=== PATIENT | female | born 1980 | race Two or more races ===

== ENCOUNTER 2019-06-05 19:58 | Emergency (ER) | payer OTHER ==
--- NOTE | 2019-06-05 20:03 | PDOC ---
Rapid Medical Evaluation Time Seen by Provider: 06/05/19 20:02 Medical Evaluation: Allergies Allergy/AdvReac Type Severity Reaction Status Date / Time No Known Allergies Allergy Verified 05/04/16 14:32 06/05/19 20:02 I have performed a brief in-person evaluation of this patient. The patient presents with a chief complaint of: dizziness and feeling off- balanced today, no CP or SOB. Pt denies pmhx but based on records here, pt was dx w/ TIA in 2016 and found to have ?atrial septal defect on ECHO and referred to cards for out-pt ROSALIND. Was placed on baby asa then which pt is no longer on. Pertinent physical exam findings:Stable and well fidencio w/ no focal deficits I have ordered the following:ekg/labs The patient will proceed to the ED for further evaluation. 06/05/19 20:07 Discharge Disposition - Diagnosis Dizziness - Referrals - Patient Instructions - Post Discharge Activity
[2019-06-05 20:04] VITALS: BP 110/67; PULSE 71; TEMP 97.9; BMI 20.9
--- NOTE | 2019-06-05 20:44 | PDOC ---
Attending Attestation - Resident Resident Name: Shwetha Smith - ED Attending Attestation I have performed the following: I have examined & evaluated the patient, The case was reviewed & discussed with the resident, I agree w/resident's findings & plan - HPI HPI: 06/05/19 21:53 see resident hpi - Physicial Exam PE: 06/05/19 21:53 agree with resident exam - Medical Decision Making 06/05/19 21:53 38-year-old female with complaints of lightheadedness, patient's history has changed well in the emergency department fluctuating between room spinning and more consistent symptoms with near syncope Patient has had extensive work-ups in the past which she did not offer stating she did not want to have to stay in the hospital for admission After further discussion she was advised to stay for observation and further evaluation due to abnormal echocardiogram in the past that seems to not have been followed up properly She is refusing in the presence of her , she is awake alert oriented x4 and has voiced understanding of the importance of following up with both her primary care and her security project manager, patient and state they will call [facility] for cardiology recommendations
[2019-06-05 21:01] LABS: BASO % 0.6 % (0-2.0); HEMATOCRIT 43.9 % (32.4-45.2); HEMOGLOBIN 15.2 GM/dL (10.7-15.3); LYMPH % 26.1 % (8-40); MCH 29.5 pg (25.7-33.7); MCHC 34.6 g/dl (32.0-36.0); MEAN CELL VOLUME 85.4 fl (80-96); MONO % 6.6 % (3.8-10.2); NEUT % 65.7 % (42.8-82.8); PLATELET COUNT 213 K/MM3 (134-434); RBC 5.14 M/mm3 (3.60-5.2); WHITE BLOOD COUNT 7.5 K/mm3 (4.0-10.0)
[2019-06-05] MEDS ORDERED: MECLIZINE HCL 25 MG TABLET (FP) PO ONE (21:03)
--- NOTE | 2019-06-05 21:03 | PDOC ---
History of Present Illness - General Chief Complaint: Lightheaded Stated Complaint: DIZZINESS/SOB Time Seen by Provider: 06/05/19 20:02 History Source: Patient Exam Limitations: No Limitations - History of Present Illness Initial Comments: 38 year old female with no PMH presented to ED for room spinning episode occurring today at 1900 and 2 months ago. Pt reported she was sitting down and all of a sudden she had a room spinning episode in which she felt very nauseous and had a large coughing episode and felt short of breath. She reported the symptoms are intermittent, but still dizziness is coming and going, prompting her to come to ED. She reported she had a similar episode x2 months ago while riding in the car, she called her PMD, and he stated since her recent physical was normal she did not need to come in. She reported no episodes between then and now. She admitted to generalized weakness and a mild frontal headache. She denied weakness, LOC, vomiting, chest pain, hemoptysis, tinnitus, recent illness , dysuria. Pt then reported that she did not have room spinning, that she was feeling generally weak and nauseous. When asked if she felt she was going to pass out she was adiment she did not feel that, stating "Minda been walking to the bathroom and back just fine." She reported she did not want to come to the ED, but her insisted. PSH: x3 Medications: denied Family history: Mother - DM; denied ID in mother/father/siblings ROS General: denied fever, chills, generalized weakness. HEENT: denied sore throat, rhinorrhea, ear pain. Cardiovascular: denied chest pain, palpitations, syncope, diaphoresis. Respiratory: denied shortness of breath, cough, sputum production, hemoptysis. Gastrointestinal: denied abdominal pain, nausea, vomiting, diarrhea, constipation, blood in stool. Genitourinary: denied dysuria, increased urinary frequency, hematuria, urinary incontinence, flank pain. Back: denied back pain. Musculoskeletal: denied joint pain, muscle pain, joint swelling. Neurological: admitted to headache, dizziness. denied numbness, tingling, weakness. Integumentary: denied rash, laceration, abrasion. Hematologic/Lymphatic: denied bruising or bleeding. PE Constitutional: Well-nourished, Well-developed, appearing stated age. HEENT: head is normocephalic, atraumatic. EOMI. PERRLA. no scalp hematoma. Neck: supple. Full ROM. no midline c-spine tenderness to palpation. Cardiovascular: regular heart rhythm. no murmurs. no pericardial friction rub. Respiratory: clear to auscultation bilaterally. no crackles, rhonchi or wheezing. no stridor. Gastrointestinal: soft, nontender. normal bowel sounds. no rebound, guarding, masses. Extremities: peripheral pulses intact. no lower extremity edema. Neurological: alert. oriented x3. CN2-12 intact. 5/5 strength all extremities. normal ankle plantar flexion. full sensation all extremities and bilateral face. romberg negative. no ataxia. gait normal. Diz-Hallpike did not reproduce symptoms. Psych: awake, alert, oriented x3. follows commands. answers questions appropriately. Past History - Past Medical History Allergies/Adverse Reactions: Allergies Allergy/AdvReac Type Severity Reaction Status Date / Time No Known Allergies Allergy Verified 06/05/19 20:04 Home Medications: Ambulatory Orders Aspirin Coated [Ecotrin -] 81 mg PO DAILY tablet.ec 05/06/16 Asthma: No - Psycho Social/Smoking Cessation Hx Smoking History: Never smoked Have you smoked in the past 12 months: No Information on smoking cessation initiated: No Hx Alcohol Use: No Drug/Substance Use Hx: No Substance Use Type: None Hx Substance Use Treatment: No *Physical Exam - Vital Signs Last Vital Signs Temp Pulse Resp BP Pulse Ox 97.9 F 71 17 110/67 100 06/05/19 20:02 06/05/19 20:02 06/05/19 20:02 06/05/19 20:02 06/05/19 20:02 ED Treatment Course - LABORATORY CBC & Chemistry Diagram: 06/05/19 20:50 06/05/19 20:50 - RADIOLOGY Radiology Studies Ordered: Category Date Time Status HEAD CT WITHOUT CONTRAST [CT] Stat CT Scan 06/05/19 20:57 Ordered CHEST PA & LAT [RAD] Stat Radiology 06/05/19 20:58 Ordered Medical Decision Making - Medical Decision Making 38 year old female with above PMH presented to ED for dizziness room spinning episode intermittently occurring today. Pt reported to me that she had no PMH, had never had a CT of her head. Upon chart review pt was admitted x3 years ago for left sided weakness, had CT head, MRI head, CT angiogram of head and neck which was normal. Her ECHO at the time was concerning for PFO, she was recommended to F/U outpatient for bubbles study. When confronted she reported "I did not want you to find out, I was here for three days last time and I do not want that again." She reported she did follow up and had the bubbles study performed and "many other tests" which were negative. She reported she did not follow up after that as everything was normal. Initial Vital Signs Temp Pulse Resp BP Pulse Ox 97.9 F 71 17 110/67 100 06/05/19 20:02 06/05/19 20:02 06/05/19 20:02 06/05/19 20:02 06/05/19 20:02 Afebrile. No tachycardia. No tachypnea. Normal BP. No hypoxia on room air. Labs ordered: CBC, CMP, UA, , troponin Imaging ordered: CT head, CXR Medications ordered: none EKG performed at 2008: rate 63, regular rhythm, normal axis, normal intervals, nonspecific ST changes. 06/05/19 21:42 Laboratory Last Values WBC 7.5 K/mm3 (4.0-10.0) 06/05/19 20:50 RBC 5.14 M/mm3 (3.60-5.2) 06/05/19 20:50 Hgb 15.2 GM/dL (10.7-15.3) 06/05/19 20:50 Hct 43.9 % (32.4-45.2) D 06/05/19 20:50 MCV 85.4 fl (80-96) 06/05/19 20:50 MCH 29.5 pg (25.7-33.7) 06/05/19 20:50 MCHC 34.6 g/dl (32.0-36.0) 06/05/19 20:50 RDW 13.0 % (11.6-15.6) 06/05/19 20:50 Plt Count 213 K/MM3 (134-434) D 06/05/19 20:50 MPV 9.0 fl (7.5-11.1) 06/05/19 20:50 Absolute Neuts (auto) 4.9 K/mm3 (1.5-8.0) 06/05/19 20:50 Neutrophils % 65.7 % (42.8-82.8) D 06/05/19 20:50 Lymphocytes % 26.1 % (8-40) D 06/05/19 20:50 Monocytes % 6.6 % (3.8-10.2) 06/05/19 20:50 Eosinophils % 1.0 % (0-4.5) 06/05/19 20:50 Basophils % 0.6 % (0-2.0) 06/05/19 20:50 Nucleated RBC % 0 % (0-0) 06/05/19 20:50 Sodium 140 mmol/L (136-145) 06/05/19 20:50 Potassium 3.9 mmol/L (3.5-5.1) 06/05/19 20:50 Chloride 106 mmol/L (98-107) 06/05/19 20:50 Carbon Dioxide 28 mmol/L (21-32) 06/05/19 20:50 Anion Gap 6 MMOL/L (8-16) L 06/05/19 20:50 BUN 19.6 mg/dL (7-18) H 06/05/19 20:50 Creatinine 0.8 mg/dL (0.55-1.3) 06/05/19 20:50 Est GFR (CKD-EPI)AfAm 109.93 06/05/19 20:50 Est GFR (CKD-EPI)NonAf 94.85 06/05/19 20:50 Random Glucose 86 mg/dL (74-106) 06/05/19 20:50 Calcium 9.5 mg/dL (8.5-10.1) 06/05/19 20:50 Total Bilirubin 0.6 mg/dL (0.2-1) 06/05/19 20:50 AST 16 U/L (15-37) 06/05/19 20:50 ALT 34 U/L (13-61) 06/05/19 20:50 Alkaline Phosphatase 74 U/L (45-117) 06/05/19 20:50 Troponin I < 0.02 ng/ml (0.00-0.05) 06/05/19 20:50 Total Protein 7.7 g/dl (6.4-8.2) 06/05/19 20:50 Albumin 4.5 g/dl (3.4-5.0) 06/05/19 20:50 Urine Color Yellow 06/05/19 20:50 Urine Appearance Clear 06/05/19 20:50 Urine pH 7.5 (5.0-8.0) 06/05/19 20:50 Ur Specific [place] 1.007 (1.010-1.035) L 06/05/19 20:50 Urine Protein Negative (NEGATIVE) 06/05/19 20:50 Urine Glucose (UA) Negative (NEGATIVE) 06/05/19 20:50 Urine Ketones Negative (NEGATIVE) 06/05/19 20:50 Urine Blood Negative (NEGATIVE) 06/05/19 20:50 Urine Nitrite Negative (NEGATIVE) 06/05/19 20:50 Urine Bilirubin Negative (NEGATIVE) 06/05/19 20:50 Urine Urobilinogen 0.2 mg/dL (0.2-1.0) 06/05/19 20:50 Ur Leukocyte Esterase Negative (NEGATIVE) 06/05/19 20:50 Urine HCG, Qual Negative 06/05/19 20:50 06/05/19 21:52 CXR my view: sharp costophrenic angles. no infiltrate noted. no cardiomegaly noted. no pulmonary vascular congestion. -Pending official report Results explained to patient and . It was recommended that she have repeat troponin testing, constant cardiac monitoring and cardiology consult in the AM. She and the reported they are unwilling to be admitted to the hospital. Risks explained to patient and . She and he signed out AMA. I advised she F/U with her PCP in the AM and find a drug department worker. She reported she will call [facility] to see which her insurance covers. She was alert and oriented x3, able to make her own medical decisions. 06/07/19 06:34 Follow up: Official CXR report: Name: [facility] DEPARTMENT OF RADIOLOGY Phys: Shwetha Smith RESIDENT : [id number] Age: 38 Sex: F [facility] Acct: [id number] Loc: [address] Exam Date: 06/05/19 Status: RACHEL [place] [id number] Unit Number: [id number] EXAM#: TYPE/EXAM: RESULT: [id number] RAD/CHEST PA LAT Two-view study of the chest PA and lateral projections History: Rule out pneumonia PA and lateral views of the chest are completed with good inspiratory effort identified. Symmetric normal aeration in both lungs with no infiltrate, mass or effusion. No mediastinal adenopathy. Review of the bones demonstrates no focal bony lesions. No compression fracture of the imaged thoracic vertebra. No cardiomegaly. No cervical ribs. Visualized portions of upper abdomen intact, no free air or pneumothorax observed. Impression: Normal two-view survey of the chest. Reported By: Sheldon Morales MD 06/06/19 0751 Discharge - Discharge Information Problems reviewed: Yes Clinical Impression/Diagnosis: Dizziness, Weakness Condition: Guarded Disposition: AGAINST MEDICAL ADVICE - Follow up/Referral Referrals: Jaye Allen MD [Primary Care Provider] - - Patient Discharge Instructions - Post Discharge Activity
[2019-06-05 21:24] LABS: PH,URINE 7.5 (5.0-8.0); URINE APPEARANCE CLEAR; URINE BILIRUBIN NEGATIVE (NEGATIVE); URINE COLOR YELLOW; URINE GLUCOSE (UA) NEGATIVE (NEGATIVE); URINE KETONE NEGATIVE (NEGATIVE); URINE LEUK ESTERASE NEGATIVE (NEGATIVE); URINE NITRITE NEGATIVE (NEGATIVE); URINE PROTEIN NEGATIVE (NEGATIVE); URINE UROBILINOGEN 0.2 mg/dL (0.2-1.0)
[2019-06-05 21:42] LABS: ALBUMIN 4.5 g/dl (3.4-5.0); ALK PHOS 74 U/L (45-117); ANION GAP 6 MMOL/L (8-16); BILIRUBIN,TOTAL 0.6 mg/dL (0.2-1); BLOOD UREA NITROGEN 19.6 mg/dL (7-18); CALCIUM 9.5 mg/dL (8.5-10.1); CHLORIDE 106 mmol/L (98-107); CO2 28 mmol/L (21-32); CREATININE 0.8 mg/dL (0.55-1.3); GLUCOSE,RANDOM 86 mg/dL (74-106); POTASSIUM 3.9 mmol/L (3.5-5.1); SGOT/AST 16 U/L (15-37); SGPT/ALT 34 U/L (13-61); SODIUM 140 mmol/L (136-145); TOT PROT 7.7 g/dl (6.4-8.2)
[2019-06-05] MEDS ORDERED: MECLIZINE HCL 25 MG TABLET (FP) ONE (21:46)
--- NOTE | 2019-06-06 14:42 | EKG ---
Test Reason : Blood Pressure : / mmHG Vent. Rate : 063 BPM Atrial Rate : 063 BPM P-R Int : 164 ms QRS Dur : 086 ms QT Int : 416 ms P-R-T Axes : 070 059 060 degrees QTc Int : 425 ms NORMAL SINUS RHYTHM POSSIBLE LEFT ATRIAL ENLARGEMENT BORDERLINE ECG WHEN COMPARED WITH ECG OF 04-MAY-2016 14:53, NO SIGNIFICANT CHANGE WAS FOUND Confirmed by CHONG VERA MD ([id number]) on 06/06/2019 2:42:11 PM Referred By: Confirmed By:CHONG VERA MD
== END 2019-06-05 21:58 | disposition left against medical advice (07) ==
LOC: JER 19:58
DX: R42 Dizziness and giddiness (principal); R53.1 Weakness
CPT/HCPCS: 36415; 71046-TC-FY; 80053; 81003; 84484; 84703; 85025; 93005; 93010; 99283-25

== ENCOUNTER 2024-02-23 15:01 | Emergency (ER) | payer OTHER ==
[2024-02-23 15:12] VITALS: BP 108/65; PULSE 85; RESP 18; TEMP 97.7; BMI 22.6
[2024-02-23 16:18] LABS: BASO % 0.7 % (0-2.0); EOS % 0.9 % (0-4.5); HEMATOCRIT 42.6 % (32.4-45.2); HEMOGLOBIN 14.5 GM/dL (10.7-15.3); LYMPH % 24.3 % (8-40); MCH 28.8 pg (25.7-33.7); MCHC 34.1 g/dl (32.0-36.0); MEAN CELL VOLUME 84.2 fl (80-96); MEAN PLT VOLUME 8.5 fl (7.5-11.1); NEUT % 68.1 % (42.8-82.8); PLATELET COUNT 218 10^3/uL (134-434); RBC 5.05 M/mm3 (3.60-5.2); RDW 13.1 % (11.6-15.6); WHITE BLOOD COUNT 7.8 K/mm3 (4.0-10.0)
[2024-02-23 16:24] LABS: PH,URINE 6.5 (5.0-8.0); URINE APPEARANCE CLEAR; URINE BILIRUBIN NEGATIVE (NEGATIVE); URINE COLOR YELLOW; URINE GLUCOSE (UA) NEGATIVE (NEGATIVE); URINE KETONE NEGATIVE (NEGATIVE); URINE LEUK ESTERASE NEGATIVE (NEGATIVE); URINE NITRITE NEGATIVE (NEGATIVE); URINE PROTEIN NEGATIVE (NEGATIVE)
[2024-02-23 16:27] LABS: HCG,QUALITATIVE URINE Negative
[2024-02-23 16:42] LABS: POTASSIUM 3.9 mmol/L (3.5-5.1)
[2024-02-23 16:44] LABS: ALBUMIN 4.1 g/dl (3.4-5.0); BLOOD UREA NITROGEN 19.9 mg/dL (7-18); CALCIUM 9.6 mg/dL (8.5-10.1)
[2024-02-23 16:48] LABS: CREATININE 0.9 mg/dL (0.55-1.3)
[2024-02-23 16:50] LABS: BILIRUBIN,TOTAL 0.9 mg/dL (0.2-1)
== END 2024-02-23 17:17 | disposition home or self-care (01) ==
LOC: JERFT 15:01
DX: N92.6 Irregular menstruation, unspecified (principal); N64.59 Other signs and symptoms in breast; R14.0 Abdominal distension (gaseous); K59.00 Constipation, unspecified; R53.83 Other fatigue; L65.9 Nonscarring hair loss, unspecified
CPT/HCPCS: 36415; 80053; 81003; 84439; 84443; 84703; 85025; 99283-25